=== PATIENT | male | born 1985 | race Caucasian/White ===

== ENCOUNTER 2017-02-26 11:43 | Emergency (ER) | payer OTHER ==
[~2017-02-26] VITALS: Ht 175.3 cm; Wt 71.8 kg
[~2017-02-26 11:43] MED LIST: BACTRIM,SEPT1 TABLET PO; MOTRIN600 MG PO; MOTRIN800 MG PO; NOHOMEMEDS; ULTRAM50 MG PO; VYVANSE30 MG PO
[2017-02-26 13:32] LABS: HEMATOCRIT 39.7 % (38.0-50.0); HEMOGLOBIN 13.9 G/DL (12.5-16.6); MCH 30.8 PG (29.0-34.0); PLATELET COUNT 241 K/uL (156-360); RBC DIS.WIDTH-CV 12.3 % (11.8-14.6); RBC DIS.WIDTH-SD 39.3 % (39-53); RED BLOOD COUNT 4.51 M/uL (4.00-5.50); WHITE BLOOD COUNT 8.4 K/uL (4.1-10.2)
[2017-02-26 13:41] LABS: D-DIMER ELISA < 150.00 ng/mLDDU (<230)
[2017-02-26 13:42] LABS: CHLORIDE 106 mEq/L (99-109); POTASSIUM 3.8 mEq/L (3.7-5.4); SODIUM 141 mEq/L (136-147)
[2017-02-26 13:44] LABS: GLUCOSE 96 mg/dL (70-99)
[2017-02-26 13:48] LABS: CREATININE 0.8 mg/dL (0.6-1.3); GFR ESTIMATE (CALCULATED) > 59 mL/min/ (58.99-99999)
[2017-02-26 13:49] LABS: UREA NITROGEN (BUN) 7 mg/dL (9-23)
[2017-02-26 13:53] LABS: TROP-I INTERPRETATION NEGATIVE; TROPONIN-I < 0.01 ng/mL (0.0-0.30)
[2017-02-26 14:36] VITALS: BP 108/63
== END 2017-02-26 14:37 | disposition home or self-care (01) ==
LOC: EME 11:43
PROVIDERS: Physician Assistant Medical
DX: R04.2 Hemoptysis (principal); R07.9 Chest pain, unspecified; F17.200 Nicotine dependence, unspecified, uncomplicated; K21.9 Gastro-esophageal reflux disease without esophagitis; Z88.6 Allergy status to analgesic agent
CPT/HCPCS: 71046; 80048; 84484; 85027; 85379; 93005; 99281; 99284